=== PATIENT | male | born 1950 | race Caucasian/White ===

== ENCOUNTER 2017-02-22 21:17 | Emergency (ER) | payer OTHER ==
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
[2017-02-22] MEDS ORDERED: 0.9% Sodium Chloride 1,000 ML IV ONE (21:21)
[2017-02-22 21:33] LABS: BASOPHILS % (AUTO) 0.3 % (0-3); EOSINOPHILS % (AUTO) 1.5 % (0-5); MONOCYTES % (AUTO) 7.1 % (4-12); Mean Corpuscular Hemoglobin 33.2 pg (27.0-35.0); Mean Corpuscular Volume 93.6 fL (81-100); NEUTROPHILS % (AUTO) 46.5 % (40-74); Platelet Count 254 bil/L (150-400)
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
[2017-02-22 21:52] LABS: INR 0.92 ratio
[2017-02-22 21:55] LABS: TROPONIN T 0.01 ug/L (0.0-0.011)
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
[2017-02-22] MEDS ORDERED: CeFAZolin Inj 2 GM in Dextrose 5% 50 ML IV ONE (23:20)
[2017-02-22] MEDS ORDERED: TdaP Vaccine 0.5 mL Inj IM ONE (23:25)
[2017-02-22] MEDS ORDERED: CeFAZolin 2 Gm/50 mL D5W IV Premix IV ONE (23:35)
[2017-02-22] MEDS ORDERED: CEPH-512 PO (23:40)
[2017-02-23 00:05] LABS: APPEARANCE,URINE CLEAR (CLEAR,HAZY); COLOR,URINE STRAW (YELLOW); OCCULT BLOOD,URINE NEGATIVE (NEGATIVE); UROBILINOGEN,URINE NORMAL (NORMAL)
[2017-02-23 00:55] VITALS: BP 116/67; PULSE 65; RESP 17; O2SAT 95
== END 2017-02-23 00:46 | disposition home or self-care (01) ==
LOC: EDBD 21:17 → SED 21:17
DX: S21.111A Laceration without foreign body of right front wall of thorax without penetration into thoracic cavity, initial encounter (principal); X99.1XXA Assault by knife, initial encounter; Y93.89 Activity, other specified; Y92.9 Unspecified place or not applicable; Y99.8 Other external cause status; Z72.89 Other problems related to lifestyle; Z23 Encounter for immunization
CPT/HCPCS: 36415; 71010; 71260; 80053; 81001; 81002; 83690; 83735; 84484; 85014; 85018; 85025; 85610; 85730; 86850; 90471; 90715; 93005; 96361; 96365; 99291; G0390; G0480; J0690; J7030; Q9967